=== PATIENT | female | born 1935 | race Caucasian/White ===

== ENCOUNTER → 2017-01-13 | Outpatient (CLI) | payer MEDICARE, BC ==
[~2017-01-13] MED LIST: ASPIRIN E.C. 8181 MG PO; CALCIUM + D 6001 TAB PO; CALCIUM600 M2 PO; CORGARD 40M40 MG/TAB PO; DYAZIDE 25 MG-31 CAP PO; FERROUS SU325 MG/TAB PO; FOLIC ACID PO; HCTZ12.5TAB PO; LIPITOR 10MG10 MG PO; LOPRESSOR 225 MG/TAB PO; MAXZIDE PO; MULTIPLE VITAMI1 TAB PO; NADOLOL PO; PLAVIX 75MG TAB75 MG PO; PRINIVIL5 MG PO; RESTASIS0.05% OP; ST. JOSEPH81 M2 PO; TYLENOL 325MG325 MG PO; TYLENOL PM EXTR1 TA1 PO; VICODIN 5/5001 UDTAB PO; VITAMIN C BUFF500 MG PO; VITAMIN C500 MG PO
== END ==
LOC: COL.RAD 12:54
DX: M25.551 Pain in right hip (principal)
CPT/HCPCS: J3301; Q9967

== ENCOUNTER → 2017-03-09 | Outpatient (CLI) | payer MEDICARE, BC | LOC: MC.RAD 03-04 10:00 | DX: Z12.31 Encounter for screening mammogram for malignant neoplasm of breast (principal) ==

== ENCOUNTER → 2017-06-02 | Outpatient (CLI) | payer MEDICARE, BC | LOC: COL.RAD 11:27 | DX: M25.551 Pain in right hip (principal) | CPT/HCPCS: J3301; Q9967 ==

== ENCOUNTER → 2017-08-18 | Outpatient (CLI) | payer MEDICARE, BC | LOC: COL.RAD 16:00 | DX: M16.11 Unilateral primary osteoarthritis, right hip (principal); M46.1 Sacroiliitis, not elsewhere classified; Z96.642 Presence of left artificial hip joint ==

== ENCOUNTER → 2018-10-16 | Outpatient (CLI) | payer MEDICARE, BC | LOC: COL.RAD 10:19 | DX: M25.551 Pain in right hip (principal) | CPT/HCPCS: J3301; Q9967 ==

== ENCOUNTER 2023-10-11 10:41 | Emergency (ER) | payer MEDICARE, BC ==
[~2023-10-11] VITALS: Ht 170.2 cm; Wt 54.5 kg
[~2023-10-11 10:41] MED LIST changes: +ASPIRIN 32325 MG/TA1 PO; +CRANBERRY250 MG; +METAMUCIL MUL0.52 GM PO; +MOTRIN 200200 MG/TAB PO; +NORCO 325 MG-51 TAB PO; +PRINZIDE 12.5 M1 TA1 PO; +ULTRAM 50MG TAB50 MG PO
[2023-10-11 11:38] LABS: BASO % 0.4 % (0.0-2.0); EOS % 0.8 % (0.0-4.0); GRAN # 3.9 K/mm3 (1.4-6.5); GRAN % 76.4 % (42.2-75.2); HEMATOCRIT 44.3 % (37.0-47.0); HEMOGLOBIN 14.2 g/dl (12.5-16.0); LYMPH # 0.8 K/mm3 (1.2-3.4); LYMPH % 14.6 % (20.0-51.0); MEAN CELL VOLUME 92 fl (80.0-100.0); MEAN CORPUSCULAR HEMOGLOBIN 30 pg (27-31); MEAN CORPUSCULAR HGB CONC 32 g/dl (33.0-37.0); MEAN PLATELET VOLUME 9.2 fl (7.4-10.4); MONO # 0.4 K/mm3 (0.1-0.6); MONO % 7.6 % (1.7-9.3); PLATELET COUNT 156 K/mm3 (130-400); RED BLOOD COUNT 4.81 M/mm3 (4.10-5.30); REDCELL DISTRIBUTION WIDTH-CV 14.5 % (11.5-14.5)
[2023-10-11 11:55] LABS: ALANINE AMINOTRANSFERASE 11 U/L (0-55); ALBUMIN 3.3 gm/dL (3.4-4.8); ALKALINE PHOSPHATASE 62 U/L (40-150); ANION GAP 9 mmol/L (7-16); AST,SGOT 25 U/L (5-34); BILIRUBIN,TOTAL 0.8 mg/dL (0.2-1.2); BLOOD UREA NITROGEN 19 mg/dL (10-20); CALCIUM 9.9 mg/dL (8.4-10.2); CARBON DIOXIDE 28 mmol/L (23-31); CHLORIDE 104 mmol/L (98-107); CREATININE, serum 0.83 mg/dL (0.57-1.11); GLUCOSE 88 mg/dL (70-99); POTASSIUM 3.3 mmol/L (3.5-4.5); SODIUM 141 mmol/L (136-145); TOTAL PROTEIN 6.5 gm/dL (6.2-8.1)
[2023-10-11 12:04] LABS: TROPONIN-I < 0.010 ng/mL (0.00-0.033)
[2023-10-11] MEDS ORDERED: Acetaminophen 500 MG TAB PO ONE (12:30)
[2023-10-11 13:05] LABS: URINE APPEARANCE CLEAR (CLEAR/HAZY); URINE BLOOD TRACE (NEGATIVE); URINE COLOR YELLOW (YELLOW); URINE GLUCOSE NEGATIVE (NEGATIVE); URINE KETONE NEGATIVE (NEGATIVE); URINE NITRATE POSITIVE (NEGATIVE); URINE PROTEIN(semi-quant) NEGATIVE (NEGATIVE); URINE UROBILINOGEN 0.2 E.U/dL (0.2-1.0)
[2023-10-11] MEDS ORDERED: CEPHALEXIN500 M1 PO (13:17)
[2023-10-11 13:26] LABS: COLLECTION METHOD CATHETER
[2023-10-11] MEDS ORDERED: cefTRIAXone 1 G in Water For Injection,Sterile 10 ML IV ONE (13:30)
[2023-10-11 14:13] VITALS: BP 174/87; PULSE 53; TEMP 97
== END 2023-10-11 14:13 | disposition home or self-care (01) ==
LOC: COL.ER 10:41
PROVIDERS: Physician Assistant
DX: N39.0 Urinary tract infection, site not specified (principal); Z88.2 Allergy status to sulfonamides
CPT/HCPCS: J0696